=== PATIENT | female | born 1975 | race Caucasian/White ===

== ENCOUNTER 2017-11-16 05:25 | Day surgery (SDC) | payer OTHER, MEDICAID ==
[~2017-11-16] VITALS: Ht 157.5 cm; Wt 83.9 kg
[2017-11-16] MEDS ORDERED: CEFAZOLIN 1 GM IVPB PREMIX 50 ML IV ONE (07:00)
[2017-11-16] MEDS ORDERED: FAMOTIDINE PF 20 MG/2 ML VIAL ONE (07:40)
[2017-11-16] MEDS ORDERED: KETAMINE HCL 500 MG/10 ML VIAL ONE (07:46)
[2017-11-16] MEDS ORDERED: FAMOTIDINE PF 20 MG/2 ML VIAL IVP ONE (08:00)
[2017-11-16] MEDS ORDERED: MORPHINE 4 MG/ML INJ. SYRINGE ONE (08:29)
[2017-11-16] MEDS ORDERED: NS IRRIG SOLN 1000 ML IR ONE (08:41)
[2017-11-16] MEDS ORDERED: METOCLOPRAMIDE HCL 10 MG/2 ML VIAL IVP ONE (08:41)
[2017-11-16] MEDS ORDERED: BUPIVACAINE /PF 0.5% 30 ML VIAL INJ ONE (08:41)
[2017-11-16] MEDS ORDERED: ROCURONIUM BROMIDE 10 MG/ML (ZEMURON) IV ONE (08:41)
[2017-11-16] MEDS ORDERED: LR 1,000 ML IV.SOLN IV ONE (08:41)
[2017-11-16] MEDS ORDERED: HYDROmorphone 2 MG/ML VIAL IVP ONE (08:41)
[2017-11-16] MEDS ORDERED: KETOROLAC TROMETHAMINE 30 MG VIAL IVP ONE (08:41)
[2017-11-16] MEDS ORDERED: MIDAZOLAM HCL 5 MG/5 ML VIAL IVP ONE (08:41)
[2017-11-16] MEDS ORDERED: KETAMINE HCL 500 MG/10 ML VIAL IVP ONE (08:41)
[2017-11-16] MEDS ORDERED: GLYCOPYRROLATE 0.2 MG/ML VIAL IJ ONE (08:41)
[2017-11-16] MEDS ORDERED: NS 1000 ML BAG IV ONE (08:41)
[2017-11-16] MEDS ORDERED: fentaNYL CITRATE 250 MCG/5 ML AMP IV ONE (08:41)
[2017-11-16] MEDS ORDERED: PROPOFOL 200MG/ 20ML VIAL (DIPRIVAN) IV ONE (08:41)
[2017-11-16] MEDS ORDERED: SEVOFLURANE 15 MIN GAS INH ONE (08:41)
[2017-11-16] MEDS ORDERED: MORPHINE 2 MG/ML INJ. SYRINGE IVP ONE (08:45)
[2017-11-16] MEDS ORDERED: LR 500 ML IV ONE (10:43)
[2017-11-16] MEDS ORDERED: LR 1,000 ML IV ONE (10:43)
[2017-11-16] MEDS ORDERED: FENT2mCg/mL-ROPIVA0.2%/NS EPID 150 ML EP SCH (10:45)
[2017-11-16] MEDS ORDERED: fentaNYL CITRATE/PF 100 MCG/2 ML AMP IVP ONE (10:45)
[2017-11-16] MEDS ORDERED: fentaNYL CITRATE/PF 100 MCG/2 ML AMP IVP PRN (10:45)
[2017-11-16] MEDS ORDERED: DIPHENHYDRAMINE INJ 50 MG/ML VIAL IVP PRN (10:45)
[2017-11-16] MEDS ORDERED: ePHEDrine sulfate 50 MG/ML VIAL IVP PRN ×2 (10:45)
[2017-11-16] MEDS ORDERED: ONDANSETRON HCL 4 MG/2 ML VIAL IVP PRN ×3 (10:45→12:00)
[2017-11-16] MEDS ORDERED: NALBUPHINE HCL 10 MG/ML AMP IVP PRN (10:45)
[2017-11-16] MEDS ORDERED: NALOXONE HCL 0.4 MG/ML AMP (NARCAN) IVP PRN (10:45)
[2017-11-16 11:02] VITALS: BP_SYST 109
[2017-11-16] MEDS ORDERED: FENT2mCg/mL-ROPIVA0.2%/NS EPID 150 ML EP ONE ×2 (11:11→20:27)
[2017-11-16] MEDS ORDERED: OXYCODONE/ACETAMINOPHEN 5-325 TABLET PO PRN (12:00)
[2017-11-16] MEDS ORDERED: HYDROcodone/ACETAMIN 5-325 MG TAB (NORCO/ VICODIN) PO PRN (12:00)
[2017-11-16] MEDS ORDERED: SIMETHICONE 80 MG TAB.CHEW PO SCH (13:00)
[2017-11-16] MEDS ORDERED: HYDROmorphone 1 MG INJ. 1 MG/ML AMPUL IVP ONE (13:15)
[2017-11-16] MEDS ORDERED: LR 1,000 ML IV SCH (14:00)
[2017-11-16] MEDS: BENZOCAINE/MENTHOL 1 EACH LOZENGE MM PRN ×2 (17:46→20:42)
[2017-11-17] MEDS: OXYCODONE/ACETAMINOPHEN 5-325 TABLET PO PRN ×2 (09:38→15:16)
[2017-11-17] MEDS ORDERED: PREDNISONE 10 MG TABLET PO ONE (09:45)
== END 2017-11-17 17:50 | disposition home or self-care (01) ==
LOC: SMU 05:25 → SDS 05:25 → SPU 13:42 → SDS 11-17 17:50
PROVIDERS: ATTEND Specialist
DX: N80.0 Endometriosis of uterus (principal); N72 Inflammatory disease of cervix uteri; D25.9 Leiomyoma of uterus, unspecified; M79.7 Fibromyalgia; M19.90 Unspecified osteoarthritis, unspecified site; E66.3 Overweight; K21.9 Gastro-esophageal reflux disease without esophagitis; F41.8 Other specified anxiety disorders; Z88.2 Allergy status to sulfonamides; Z79.891 Long term (current) use of opiate analgesic; Z79.899 Other long term (current) drug therapy; Z90.49 Acquired absence of other specified parts of digestive tract; Z98.890 Other specified postprocedural states
CPT/HCPCS: 58571; 87081; 88307; C1727; J0690; J1170; J1200; J1885; J2250; J2270; J2704; J2765; J3010 ×2; J3490 ×3; J7030; J7120; J7512; S2900; E0190